=== PATIENT | female | born 1990 | race Caucasian/White ===

== ENCOUNTER → 2017-05-12 | Outpatient (CLI) | END | disposition home or self-care (01) ==

== ENCOUNTER → 2017-06-16 | Outpatient (CLI) | END | disposition home or self-care (01) ==

== ENCOUNTER 2017-08-14 15:27 | Outpatient (CLI) | END 2017-08-14 17:30 | disposition home or self-care (01) ==

== ENCOUNTER → 2017-08-17 | Outpatient (CLI) | END | disposition home or self-care (01) ==

== ENCOUNTER 2017-11-17 04:00 | Inpatient (IN) | END 2017-11-19 15:50 | disposition home or self-care (01) | DRG 775 ==